=== PATIENT | female | born 1940 | race Caucasian/White ===

== ENCOUNTER → 2021-05-01 | Outpatient (CLI) | payer OTHER, MEDICARE ==
[~2021-05-01] MED LIST: ASPIRIN EC81 M1 PO; BENADRYL ALLERG25 MG PO; CARVEDILOL25 MG PO; CITALOPRAM10 MG/5 M1 PO; COZAAR100 MG PO; DIOVAN HCT 1601 EAC1 PO; GLUCOPHAGE1000 MG PO; HYDROCODON-ACE1 EAC1 PO; KEFLEX500 MG PO; LIPITOR20 MG PO; LISINOPRIL40 MG PO; SENNA-S TABLET1 EACH PO; [UNRECOGNIZED DRUG - OTHER] PO
[2021-05-01 16:20] LABS: ABSOLUTE NEUTROPHILS 2.9 thou/uL (1.4-8.2); ABSOLUTE RETIC COUNT 0.0587 10^6/uL; EOSINOPHILS 3.7 % (0.0-3.0); HEMATOCRIT 29.5 % (37.0-47.0); HEMOGLOBIN 9.4 gm/dL (12.0-15.0); LYMPHOCYTES 32.2 % (24.0-44.0); MCH 27.3 pg (26.0-34.0); MCHC 31.8 g/dL (28.0-37.0); MCV 85.7 fL (80.0-100.0); MONOCYTES 8.5 % (1.0-8.0); PLATELET COUNT 378 thou/uL (150-400); POLYS 54.6 % (36.0-66.0); RBC 3.44 mil/uL (4.20-5.00); WBC 5.2 thou/uL (4.0-11.0)
[2021-05-01 16:56] LABS: FOLIC ACID 20.2 ng/mL (8.6-58.9)
[2021-05-01 17:34] LABS: % SATURATION 8 % (20-39); IRON 35 ug/dL (50-170); TIBC 422 ug/dL (250-450)
[2021-05-02 01:06] LABS: HAPTOGLOBIN 143 mg/dL (41-333)
[2021-05-02 07:08] LABS: 25-HYDROXY TOTAL 23.7 ng/mL (30.0-100.0)
[2021-05-02 14:07] LABS: ANTI-DNA SCREEN <1 IU/mL (0-9); ANTI-RNP 3.1 AI (0.0-0.9)
[2021-05-02 17:07] LABS: HEMOGLOBIN 9.3 g/dL (11.1-15.9)
[2021-05-03 14:07] LABS: GLOBULIN TOTAL 3.3 g/dL (2.2-3.9); M-SPIKE Not Observed g/dL (Not Observed)
== END ==
LOC: LAB 15:08
PROVIDERS: ATTEND Internal Medicine
DX: D50.0 Iron deficiency anemia secondary to blood loss (chronic) (principal)